=== PATIENT | female | born 1990 ===

== ENCOUNTER 2018-04-04 19:32 | Emergency (ER) | payer OTHER ==
[2018-04-05 01:06] VITALS: BP 95/49; PULSE 72; RESP 18; TEMP 98; O2SAT 99
--- NOTE | 2018-04-07 10:09 | OBHP ---
Datetime: 04/04/2018 20:26 IP Adm Impression: , intrauterine IP Admit Plan: Observation/Evaluation; Discharge home Admit Comment, IP Provider: 27-year-old at 37.4 weeks IUP presents with decreased movemen t of 2 days duration. She admits to some movement, but expresses concern that it has been very decreased from baseline. She denies painful/regular contractions but admits to occasional [place] Hic ks. Denies vaginal bleeding, foul smelling vaginal discharge, recent intercourse, gush of fluid from vagina, syncope, change in vision, headaches, chest pain and new-onset edema. Last seen by OBGYN one week prior to presentation and next appointment scheduled , 04/10. PMD: [facility] PMHx: iron def anemia Meds: vitamins, iron Surgical Hx: denies Family Hx: denies OBHx: , NVD IOL @ 41 weeks 2008 Labs: negative as per patient, no medical records available for confirmation PE: VS: Stable overnight GEN: NAD Skin: no rash Cardio: S1S2, RRR Lungs: clear breath sounds b/l, no wheezing Abdomen: IUP, no tenderness to palpation Extremities: No edema, calves nontender Neuro/Psych: AAOx3, no grossly focal deficits, preserved affect and mood. A_P: 27-year-old at 37.4 weeks IUP presents with decreased movement of 2 days duration. Plan: -Observation -NST: Reactive, Category I; FHR 135, Accelerations present 15x15, no decelerations -Given reactive, Cat I tracing patient is cleared for discharge to home -ED precautions given Case seen with and discussed with Dr. Doug Velásquez PGY1 Pelvic Type - PN: Not Done Extremities - PN: Normal Abdomen - PN: Normal Back - PN: Normal Breast - PN: Normal Lungs - PN: Normal Heart - PN: Normal Thyroid - PN: Not Done Neurologic - PN: Normal HEENT - PN: Normal General - PN: Normal FHR - Baseline A Provider: 135 EGA AdmitDate IP: 37.4 Vital Signs Provider: Reviewed; Within Normal Limits IP Chief Complaint: Decreased movement NICHD Variability Prov Fetus A: Moderate 6-25bpm NICHD Accel Fetus A IP Provider: [id number] FHR Category Provider Fetus A: Category I NICHD Decel Fetus A IP Provider: None Genitourinary Exam: Not Done DTRs - PN: Not Done
== END 2018-04-04 20:20 | disposition home or self-care (01) ==
LOC: H.EROB2 19:32
DX: O36.8131 Decreased fetal movements, third trimester, fetus 1 (principal); O26.93 Pregnancy related conditions, unspecified, third trimester; R10.2 Pelvic and perineal pain; Z3A.37 37 weeks gestation of pregnancy

== ENCOUNTER 2018-04-21 19:29 | Inpatient (IN) | payer OTHER ==
[2018-04-21 20:27] VITALS: BMI 26.0
[2018-04-21] MEDS ORDERED: Lactated Ringer's 1,000 ML IV ONE (21:55)
[2018-04-21] MEDS ORDERED: Oxytocin 30 UNIT 30 UNITS/500 ML BAG IV ONE (21:58)
[2018-04-21] MEDS ORDERED: Lactated Ringer's 1,000 ML IV SCH (22:00)
[2018-04-21] MEDS ORDERED: OXYTOCIN/0.9 % NS 20 UNIT/1,000 ML BAG IV SCH (22:00)
--- NOTE | 2018-04-21 22:12 | OBADHP ---
Datetime: 04/21/2018 21:52 Admit Comment, IP Provider: 27 yo at 40 weeks IUP (based on U/S) presents to [facility] with compl aint of CTX starting at 9 am this morning and loss of her mucus plug @ 5:30 pm today. She endorses go od movement. Denies vaginal bleeding, recent intercourse, or gush of fluid from vagina. Denies headaches, angina, dyspnea, and change in vision. ROS: negative except for stated above in HPI PMD: [facility] PMHx: iron def anemia Meds: vitamins, iron Surgical Hx: denies Family Hx: denies OBHx: , NVD IOL @ 41 weeks 2008; Last seen by OBGYN was , 04/10. Labs: HIV: negative; HbsAg: negative; GBS: negative; Rubella: immune; RPR: non-reactive; ABO: O+ ; antibody: negative PE: VS: Stable GEN: NAD Skin: no rash Cardio: S1S2, RRR Lungs: clear breath sounds b/l, no wheezing, no rhonchi Abdomen: IUP, no tenderness to palpation, gravid; +BS Extremities: No edema, calves nontender Neuro/Psych: AAOx3, no grossly focal deficits, preserved affect and mood. SVE: performed with Dr. Justin: 1-2cm/ 40% / -3; posterior A_P: 27-year-old with IUP at 40 weeks IUP (based on U/S) admitted for Induction of labor due to 2 late decelerations noted on the EFM. Plan: - Admit to L and D for induction at this time given 2 late d-cels noted on the EFM -NST: 2 late D cels noted, Reactive now- Category 1 tracing - CBC and Type and screen - Cervidil placement - Anesthesia consult - LR - BPP with TONY at this time - 10/09 WITH tony OF 12 Case seen with and discussed with Dr. Justin -Oly Pisano PGY1 OB Hospitalist Addendum: Pt seen and examined by me. Agree w/ above. 27 yo at 40 wks w/ c/o passing blood-tinged mucus, irrreg ctxns. VE: 1-240/-3, posterior. Pt sent for u/s: BPP 8/8, TONY 12.08. FHT reactive w/ decelerations to 70's-80's. Discussed heart decelerations w/ pt. Rec that she stay for inductio of labor. Will start induction w/ cervidil. (ES) Pelvic Type - PN: Adequate Extremities - PN: Normal Abdomen - PN: Normal Back - PN: Normal Breast - PN: Not Done Lungs - PN: Normal Heart - PN: Normal Thyroid - PN: Normal Neurologic - PN: Normal HEENT - PN: Normal General - PN: Normal FHR - Baseline A Provider: 145 Contraction Comments Provider: IRREGULAR Vital Signs Provider: Reviewed; Within Normal Limits IP Chief Complaint: Uterine contractions; Maternal discomfort NICHD Variability Prov Fetus A: Moderate 6-25bpm NICHD Accel Fetus A IP Provider: [id number] FHR Category Provider Fetus A: Category I NICHD Decel Fetus A IP Provider: None Dilatation, Provider: 1-2 Effacement, Provider: 40 Station, Provider: -3 Genitourinary Exam: Normal DTRs - PN: Normal EGA AdmitDate IP: 40.0 IP Adm Impression: Term, intrauterine Datetime: 04/21/2018 20:07 IP Admit Plan: Admit to unit; Initiate labor induction protocol; Observation/Evaluation
[2018-04-21 22:55] LABS: BASO # 0.1 K/uL (0.0-0.2); BASO % 0.6 % (0.0-2.0); EOS % 0.1 % (0.0-4.0); HEMOGLOBIN 11.5 g/dL (12.0-16.0); LYMPH # 2.5 K/uL (1.0-4.3); LYMPH % 27.1 % (20.0-40.0); MEAN CELL VOLUME 79.3 fl (81.0-99.0); MEAN CORPUSCULAR HEMOGLOBIN 25.5 pg (27.0-31.0); MEAN CORPUSCULAR HGB CONC 32.2 g/dL (33.0-37.0); MEAN PLATELET VOLUME 9.2 fl (7.2-11.7); MONO # 0.5 K/uL (0.0-0.8); MONO % 5.5 % (0.0-10.0); NEUT # 6.2 K/uL (1.8-7.0); NEUT % 66.7 % (50.0-75.0); RBC 4.51 Mil/uL (3.80-5.20); RED CELL DISTRIBUTION WIDTH 17.4 % (11.5-14.5); WHITE BLOOD COUNT 9.3 K/uL (4.8-10.8)
[2018-04-22] MEDS ORDERED: Nalbuphine HCL 10 mg/ml Ampule IVP PRN ×2 (01:35→17:46)
[2018-04-22] MEDS ORDERED: Nalbuphine 20 mg/ml Inj (10 ml) ONE (02:05)
[2018-04-22] MEDS ORDERED: Fentanyl/Bupivacaine HCl 250 ML EPI ONE (05:53)
[2018-04-22] MEDS ORDERED: Bupivacaine HCl 0.25% PF (10 ml) Inj ONE (05:56)
[2018-04-22] MEDS ORDERED: Benzocaine/Menthol SPRAY TOP PRN ×3 (07:00→19:49)
--- NOTE | 2018-04-22 07:25 | OBDS ---
MATERNAL INFORMATION Provider Comments: Pt preogressed to complete and pushed to delivera viable female infant through c lear fluid at 0646. Apgars 9 and 9. Wt 7#12.9, 3540gms. Infant placed on mother's abdomen. Cord w as doubly clamped after delayed cord clamping and FOB cut the cord. Cord blood was collected. Place nta delivered spontaneously intact w/a 3vc at 0648. Second degree tear was repaired w/ 2-0 rapide an d 3-0v. Pt and baby tolerated the procedure well. Rectum intact. EBL 200mL LABOR SUMMARY EDC: 04/21/2018 00:00 No. Babies in Womb: 1 LABOR INFORMATION Cervical Ripening Agents: Cervidil Group B Beta Strep: Negative
--- NOTE | 2018-04-22 11:34 | US ---
Date of service: 04/21/2018 PROCEDURE: Biophysical profile HISTORY: BPP with TONY COMPARISON: None TECHNIQUE: Standard protocol for this study/examination. FINDINGS: FINDINGS: Biophysical profile score 8/8 Based on the followin. breathing movements: 2/2 2. Gross body movement: 2/2 3. tone: 2/2 4. Qualitative amniotic fluid index: 2/2 Amniotic fluid index 12.08 Cephalic presentation. Posterior placenta. Calculated cardiac rate 150 beats per minute. IMPRESSION: Biophysical profile score 8/8.
[2018-04-23 06:42] LABS: BASO % 0.3 % (0.0-2.0); EOS % 0.2 % (0.0-4.0); HEMOGLOBIN 10.2 g/dL (12.0-16.0); LYMPH # 2.8 K/uL (1.0-4.3); LYMPH % 23.6 % (20.0-40.0); MEAN CELL VOLUME 79.7 fl (81.0-99.0); MEAN CORPUSCULAR HEMOGLOBIN 25.1 pg (27.0-31.0); MEAN CORPUSCULAR HGB CONC 31.5 g/dL (33.0-37.0); MONO # 0.6 K/uL (0.0-0.8); MONO % 5.1 % (0.0-10.0); NEUT # 8.3 K/uL (1.8-7.0); NEUT % 70.8 % (50.0-75.0); RBC 4.05 Mil/uL (3.80-5.20); RED CELL DISTRIBUTION WIDTH 17.3 % (11.5-14.5); WHITE BLOOD COUNT 11.8 K/uL (4.8-10.8)
--- NOTE | 2018-04-23 09:25 | OBPPN ---
Datetime: 04/23/2018 06:08 PP Pain Prov: Within normal limits PP Nausea Prov: Denies PP Flatus Prov: Yes PP BM Prov: No PP Breasts Prov: Not Done PP Heart Prov: Normal PP Lungs Prov: Normal PP Abdomen/Uterus Prov: Normal PP Lochia Prov: Normal PP Vulva/Perineum Prov: Normal PP CVA Tenderness Prov: Normal PP Extremities Prov: Normal PP C/S Incision Prov: Not Applicable PP Progress Prov: Normal PP Impression Prov: Normal progression PP Plan Prov: Continue present management PP Progress Note Prov: S: 27 yo s/p on 04/22/18, PPD1. Pt was seen and examined at bedsid e this AM. No overnight events. Pain is minimal. Ambulating and tolerating PO diet without difficulty . Breast feeding exclusively. Lochia < menses. +Flatus/- BM. Denies dizziness, orthostatic changes, changes in vision, palpitations, chest pain, fever, chills, diarrhea, nausea and vomiting. O: VS: Stable overnight GEN: NAD Cardio: S1S2, no murmurs Lungs: clear breath sounds b/l, no wheezing Abdomen: BS+, appropriate tenderness to palpation. Uterus is firm and at the level of the umbilic us. EXT: No edema, calves non-tender NEURO/PSYCH: AAOx3, no grossly focal deficits, preserved affect and mood. H/H: aCBC: 11.5/35.7 pCBC: pending Assessment/Plan: 27 yo s/p on 04/22/18, PPD1. Pt remains afebrile, tolerating pain. -Regular diet -Anticipate discharge 04/24 -Continue with current management -Encourage and ambulating -Colace 100mg BID -Ibuprofen 600mg q6 for pain Oly Pisano, PGY 1 Patient was seen with the resident I agree with the note IP PP Procedures: None Vital Signs Provider PP: Reviewed; Within Normal Limits
[2018-04-24 02:51] VITALS: BP 104/72; PULSE 88; RESP 18; TEMP 98.2; O2SAT 99
== END 2018-04-23 21:00 | disposition home or self-care (01) | DRG 560 ==
LOC: H.EROB2 19:29 → H.L&D 21:55 → H.OB/GYN 04-22 12:48
PROVIDERS: ADMIT Obstetrics & Gynecology; ATTEND Obstetrics & Gynecology
PROC: 3E0P7VZ Introduction of Hormone into Female Reproductive, Via Natural or Artificial Opening (ICD-10-PCS; 2018-04-21)
PROC: 4A1HXCZ Monitoring of Products of Conception, Cardiac Rate, External Approach (ICD-10-PCS; 2018-04-21)
PROC: 10E0XZZ Delivery of Products of Conception, External Approach (ICD-10-PCS; principal; 2018-04-22)
PROC: 0KQM0ZZ Repair Perineum Muscle, Open Approach (ICD-10-PCS; 2018-04-22)
DX: O48.0 Post-term pregnancy (principal); O70.1 Second degree perineal laceration during delivery; Z37.0 Single live birth; Z3A.40 40 weeks gestation of pregnancy